=== PATIENT | female | born 1965 | race Caucasian/White ===

== ENCOUNTER → 2024-06-16 07:31 | Outpatient (REF) | payer BC, SELFPAY ==
[2024-06-16 10:38] LABS: ALT (SGPT) 24 U/L (0-35); AST (SGOT) 26 U/L (14-36); Albumin 4.2 g/dl (3.5-5.0); Alkaline Phosphatase 85 U/L (38-126); Blood Urea Nitrogen 15 mg/dl (7-17); Calcium 9.3 mg/dl (8.4-10.2); Carbon Dioxide 24 mmol/L (22-30); Chloride 106 mmol/L (98-107); Glucose 100 mg/dl (70-99); HDL Cholesterol 50 mg/dl; LDL Cholesterol, Calculated 57 mg/dl; Potassium 4.5 mmol/L (3.5-5.1); Sodium 141 mmol/L (135-145); Total Bilirubin 0.4 mg/dl (0.2-1.3); Total Cholesterol 142 mg/dl (50-199); Triglyceride 179 mg/dl (10-149); Very Low Density Lipoprotein 35 mg/dl (0-30); eGFR > 60.00
[2024-06-16 10:54] LABS: TSH Reflex To Free T4 0.68 uIU/ml (0.47-4.68)
[2024-06-16 11:06] LABS: Glycohemoglobin (HgbA1c) 5.8 % (4.0-5.6)
[2024-06-18 06:04] LABS: Lipoprotein a (Lp a) <6 mg/dL (<=29)
== END ==
LOC: HWLAB 07:31
PROVIDERS: ATTENDING PHYSICIAN Student in an Organized Health Care Education/Training Program
DX: E78.2 Mixed hyperlipidemia (principal); R00.2 Palpitations
CPT/HCPCS: 36415; 80053; 80061; 83036; 83695; 84443